=== PATIENT | male | born 1965 | race African-American/Black ===

== ENCOUNTER 2018-01-20 09:50 | Day surgery (SDC) | payer OTHER ==
[2018-01-09 11:17] VITALS: BMI 25.8
[2018-01-20] MEDS ORDERED: PROPOFOL 20 ML ONE ×2 (10:14)
[2018-01-20] MEDS ORDERED: LIDOCAINE HCL/PF 2% SDV 5ML VIAL ONE (10:14)
[2018-01-20 10:19] VITALS: TEMP 98.2
[2018-01-20 12:42] VITALS: BP 121/84; PULSE 87
== END 2018-01-20 12:50 | disposition home or self-care (01) ==
LOC: FASU-ENDO 09:50
PROVIDERS: ATTEND Internal Medicine Gastroenterology
PROC: 0DJD8ZZ Inspection of Lower Intestinal Tract, Via Natural or Artificial Opening Endoscopic (ICD-10-PCS; principal; 2018-01-20 11:48)
DX: Z12.11 Encounter for screening for malignant neoplasm of colon (principal)